=== PATIENT | male | born 1990 | race African-American/Black ===

== ENCOUNTER 2017-07-14 21:46 | Emergency (ER) | payer OTHER ==
[~2017-07-14] VITALS: Ht 170.2 cm; Wt 68.0 kg
[2017-07-14 21:59] VITALS: BP 136/88
== END 2017-07-15 02:00 | disposition left against medical advice (07) ==
LOC: ER 21:53
DX: R41.82 Altered mental status, unspecified (principal); Z53.21 Procedure and treatment not carried out due to patient leaving prior to being seen by health care provider